=== PATIENT | female | born 1990 | race Caucasian/White ===

== ENCOUNTER 2017-02-09 10:53 | Emergency (ER) | payer SELFPAY ==
[2017-02-09 11:05] VITALS: BP 123/88
--- NOTE | 2017-02-09 11:51 | ED ---
Laceration/Wound HPI - HPI Summary HPI Summary: 26 year old female presents with complains of right hand laceration with a metal can top. - History of Current Complaint Stated Complaint: RIGHT HAND LAC Time Seen by Provider: 02/09/17 10:58 Hx Obtained From: Patient Hx Last Menstrual Period: ONSET TODAY Onset/Duration: Sudden Onset Aggravating: Movement Onset Severity: Moderate Current Severity: Moderate Pain Intensity: 7 Pain Scale Used: 0-10 Numeric - Allergy/Home Medications Allergies/Adverse Reactions: Allergies Allergy/AdvReac Type Severity Reaction Status Date / Time No Known Allergies Allergy Verified 02/09/17 10:58 Home Medications: Home Medications Etonogestrel [Nexplanon] 68 mg IMPLANT 02/09/17 [History] PMH/Surg Hx/FS Hx/Imm Hx - Surgical History Surgery Procedure, Year, and Place: 2- C-SECTIONS Infectious Disease History: No Infectious Disease History: Denies: Traveled Outside the in Last 30 Days - Social History Alcohol Use: Occasionally Substance Use Type: Reports: None Smoking Status (MU): Former Smoker Review of Systems Constitutional: Negative Eyes: Negative ENT: Negative Cardiovascular: Negative Respiratory: Negative Gastrointestinal: Negative Genitourinary: Negative Musculoskeletal: Negative Positive: Other - right palm laceration Neurological: Negative All Other Systems Reviewed And Are Negative: Yes Physical Exam Triage Information Reviewed: Yes Vital Signs On Initial Exam: Initial Vitals Temp Pulse Resp BP Pulse Ox 36.9 C 106 18 123/88 100 02/09/17 10:59 02/09/17 10:59 02/09/17 10:59 02/09/17 10:59 02/09/17 10:59 Vital Signs Reviewed: Yes Appearance: Positive: Well-Appearing Skin: Positive: Other - right palm/hand laceration Eyes: Positive: Normal ENT: Positive: Normal ENT inspection Neck: Positive: Supple Respiratory/Lung Sounds: Positive: Clear to Auscultation Bowel Sounds: Positive: Present Musculoskeletal: Positive: Normal Neurological: Positive: Normal Psychiatric: Positive: Normal Procedures - Laceration/Wound Repair 1 Location: upper extremity - right hand Description: Linear Length, Depth and Shape: 5 to 7.5 cm Laceration/Wound Explored: clean Closure: Skin Adhesive Diagnostics - Vital Signs Vital Signs Temp Pulse Resp BP Pulse Ox 02/09/17 10:59 36.9 C 106 18 123/88 100 - Laboratory Lab Statement: Any lab studies that have been ordered have been reviewed, and results considered in the medical decision making process. Laceration Repair Course/Dx - Clinical Impression Provider Diagnoses: Laceration of right hand Discharge - Discharge Plan Condition: Stable Disposition: HOME Prescriptions: Cephalexin CAP* [Keflex CAP*] 500 mg PO TID #30 cap Patient Education Materials: Laceration (ED) Referrals: Jenny Hodgson MD [Primary Care Provider] -
== END 2017-02-09 11:39 | disposition home or self-care (01) ==
LOC: UCCORT 10:53
DX: S61.411A Laceration without foreign body of right hand, initial encounter (principal); W26.8XXA Contact with other sharp object(s), not elsewhere classified, initial encounter; Y92.9 Unspecified place or not applicable; Z87.891 Personal history of nicotine dependence
CPT/HCPCS: 12002; 99202; G0463